=== PATIENT | female | born 1935 | race Caucasian/White ===

== ENCOUNTER 2022-01-08 11:15 | Outpatient (CLI) | payer MEDICARE | END 2022-01-08 11:16 | disposition home or self-care (01) | LOC: RAD-FRANK 11:15 | PROVIDERS: ATTEND Nurse Practitioner Family | DX: Z00.01 Encounter for general adult medical examination with abnormal findings (principal); M25.561 Pain in right knee; M17.11 Unilateral primary osteoarthritis, right knee ==

== ENCOUNTER 2022-05-20 13:51 | Inpatient (IN) | payer MEDICARE ==
[2022-05-20 14:31] LABS: #Eosinphils 0.1 thou/uL (0.0-0.7); #Monocytes 0.4 thou/uL (0.11-0.59); #Neutrophils 5.9 thou/uL (1.40-6.50); %Basophils 0.4 % (0.0-1.0); %Eosinophils 0.8 % (0.0-10.0); %Monocytes 4.6 % (0.0-10.0); %Neutrophils 70.2 % (42.0-75.0); Hemoglobin 13.3 g/dL (12.0-16.0); Mean Corpuscular HGB CONC 35.2 g/dL (32.0-36.0); Mean Corpuscular Hemoglobin 32.6 pg (27.0-31.0); Mean Corpuscular Volume 92.4 fl (78.0-98.0); Mean Platelet Volume 8.5 fL (7.4-10.4); Platelet Count 154 10x3/uL (130-400); RBC Distribution Width 11.5 % (11.5-14.5); Red Blood Cell (RBC) Count 4.09 mill/uL (4.20-5.40); White Blood Cell (WBC) Count 8.4 10x3/uL (4.8-10.8)
[2022-05-20 14:58] LABS: ALT (SGPT) 13 U/L (8-55); AST (SGOT) 22 U/L (5-34); Albumin 3.8 g/dL (3.4-4.8); Alkaline Phosphatase 53 U/L (40-110); Anion Gap 12 mmol/L (10-20); BUN (Urea Nitrogen) 11 mg/dL (9.8-20.1); Bilirubin, Total 0.5 mg/dL (0.2-1.2); CK (CPK) 135 U/L (29-168); Calc. Creatinine Clearance 0 mL/min (70-130); Calcium 8.7 mg/dL (7.8-10.44); Carbon Dioxide 23 mmol/L (23-31); Chloride 107 mmol/L (98-107); Estimated GFR 75; Globulin 2.6 g/dL (2.4-3.5); Glucose 192 mg/dL (83-110); Potassium 3.7 mmol/L (3.5-5.1); Protein, Total 6.4 g/dL (5.8-8.1); Sodium 138 mmol/L (136-145)
[2022-05-20 15:11] LABS: CKMB 4.3 ng/mL (0-6.6)
[2022-05-20 15:29] LABS: Bacteria/HPF 4+ HPF (None Seen); Bilirubin Negative (Negative); Blood, Urine Negative (Negative); Clarity Turbid (Clear); Glucose, Urine (Dipstick) 300 mg/dL (Negative); Ketone, Urine Trace mg/dL (Negative); Leukocyte 500 Leu/uL (Negative); Nitrite 1+ (Negative); Protein, Urine (Dipstick) Negative (Neg-Trace); Squamous Epithelial None Seen HPF (0-3); Urobilinogen Normal mg/dL (Less than 2); pH, Urine 6.5 (5.0-9.0)
[2022-05-20 15:31] LABS: RBC/HPF 0-3 HPF (0-3)
[2022-05-20] MEDS ORDERED: cefTRIAXone\\ROCEPHIN 2 GM VIAL ONE (15:44)
[2022-05-20] MEDS ORDERED: Ondansetron PF 4 MG/2 ML Vial IVP PRN (18:47)
[2022-05-20] MEDS ORDERED: Ondansetron ODT 4 MG TAB PO PRN (18:47)
[2022-05-20] MEDS ORDERED: Acetaminophen 325 MG TAB PO PRN (18:47)
[2022-05-20] MEDS ORDERED: Dextrose 50% Abboject 50 ML SYRINGE SLOW IVP PRN (18:47)
[2022-05-20] MEDS ORDERED: Dextrose 5% in Water 1,000 ML IV PRN (18:47)
[2022-05-20] MEDS ORDERED: HumaLOG 300 UNITS/3 ML VIAL SC PRN (18:47)
[2022-05-20 20:04] VITALS: BMI 22.8
[2022-05-20 21:17] LABS: Hemoglobin A1c 8.2 % (4.0-6.0)
[2022-05-20 21:32] LABS: Troponin I 0.057 ng/mL (< 0.028)
[2022-05-20] MEDS: Sodium Chloride 0.9% 1,000 ML IV SCH (21:37)
[2022-05-21 00:26] LABS: Troponin I 0.051 ng/mL (< 0.028)
[2022-05-21 05:09] LABS: #Eosinphils 0.1 thou/uL (0.0-0.7); #Monocytes 0.3 thou/uL (0.11-0.59); #Neutrophils 4.4 thou/uL (1.40-6.50); %Basophils 0.5 % (0.0-1.0); %Eosinophils 1.6 % (0.0-10.0); %Lymphocytes 29.4 % (21.0-51.0); %Monocytes 4.8 % (0.0-10.0); %Neutrophils 63.8 % (42.0-75.0); Hemoglobin 11.9 g/dL (12.0-16.0); Mean Corpuscular HGB CONC 34.3 g/dL (32.0-36.0); Mean Corpuscular Hemoglobin 32.1 pg (27.0-31.0); Mean Corpuscular Volume 93.4 fl (78.0-98.0); Mean Platelet Volume 8.4 fL (7.4-10.4); Platelet Count 145 10x3/uL (130-400); RBC Distribution Width 11.4 % (11.5-14.5); White Blood Cell (WBC) Count 6.9 10x3/uL (4.8-10.8)
[2022-05-21 05:32] LABS: Anion Gap 11 mmol/L (10-20); BUN (Urea Nitrogen) 7 mg/dL (9.8-20.1); Calc. Creatinine Clearance 50 mL/min (70-130); Calcium 8.5 mg/dL (7.8-10.44); Carbon Dioxide 22 mmol/L (23-31); Chloride 107 mmol/L (98-107); Estimated GFR 80; Glucose 137 mg/dL (83-110); Potassium 3.4 mmol/L (3.5-5.1); Sodium 137 mmol/L (136-145)
[2022-05-21] MEDS: Sodium Chloride 0.9% 1,000 ML IV SCH (09:57)
[2022-05-21] MEDS: HumaLOG 300 UNITS/3 ML VIAL SC PRN (12:56)
[2022-05-21] MEDS: cefTRIAXone\\ROCEPHIN 1 GM in Sodium Chloride 0.9% 100 ML IVPB SCH (17:03)
[2022-05-22] MEDS: Sodium Chloride 0.9% 1,000 ML IV SCH (00:01)
[2022-05-22] MEDS ORDERED: hydrOXYzine 25 MG TAB PO SCH (00:15)
[2022-05-22] MEDS: Carvedilol 25 MG TAB PO SCH ×2 (09:15→21:39)
[2022-05-22] MEDS: Hydrochlorothiazide 25 MG TAB PO SCH (09:15)
[2022-05-22] MEDS: cefTRIAXone\\ROCEPHIN 1 GM in Sodium Chloride 0.9% 100 ML IVPB SCH (15:34)
[2022-05-22] MEDS: HumaLOG 300 UNITS/3 ML VIAL SC PRN (18:18)
[2022-05-23 04:34] LABS: #Basophils 0.1 thou/uL (0.0-0.2); #Eosinphils 0.2 thou/uL (0.0-0.7); #Lymphocytes 2.4 thou/uL (1.20-3.40); #Monocytes 0.4 thou/uL (0.11-0.59); #Neutrophils 3.6 thou/uL (1.40-6.50); %Basophils 0.9 % (0.0-1.0); %Eosinophils 2.4 % (0.0-10.0); %Lymphocytes 36.1 % (21.0-51.0); %Monocytes 5.9 % (0.0-10.0); %Neutrophils 54.7 % (42.0-75.0); Hemoglobin 12.6 g/dL (12.0-16.0); Mean Corpuscular HGB CONC 34.3 g/dL (32.0-36.0); Mean Corpuscular Hemoglobin 31.9 pg (27.0-31.0); Mean Corpuscular Volume 92.9 fl (78.0-98.0); Mean Platelet Volume 8.5 fL (7.4-10.4); Platelet Count 154 10x3/uL (130-400); RBC Distribution Width 11.4 % (11.5-14.5); Red Blood Cell (RBC) Count 3.96 mill/uL (4.20-5.40); White Blood Cell (WBC) Count 6.6 10x3/uL (4.8-10.8)
[2022-05-23 05:00] LABS: Anion Gap 11 mmol/L (10-20); BUN (Urea Nitrogen) 9 mg/dL (9.8-20.1); Calc. Creatinine Clearance 48 mL/min (70-130); Calcium 8.9 mg/dL (7.8-10.44); Carbon Dioxide 25 mmol/L (23-31); Chloride 106 mmol/L (98-107); Estimated GFR 77; Glucose 122 mg/dL (83-110); Potassium 2.9 mmol/L (3.5-5.1); Sodium 139 mmol/L (136-145)
[2022-05-23] MEDS: Hydrochlorothiazide 25 MG TAB PO SCH (10:10)
[2022-05-23] MEDS: Carvedilol 25 MG TAB PO SCH ×2 (10:10→20:48)
[2022-05-23] MEDS: cefTRIAXone\\ROCEPHIN 1 GM in Sodium Chloride 0.9% 100 ML IVPB SCH (15:15)
[2022-05-23] MEDS: Potassium Chloride 20 MEQ TAB PO SCH ×2 (15:15→18:06)
[2022-05-24 08:14] VITALS: TEMP 98.1
[2022-05-24 08:25] LABS: Anion Gap 10 mmol/L (10-20); BUN (Urea Nitrogen) 9 mg/dL (9.8-20.1); Calc. Creatinine Clearance 46 mL/min (70-130); Calcium 9.4 mg/dL (7.8-10.44); Carbon Dioxide 27 mmol/L (23-31); Chloride 104 mmol/L (98-107); Estimated GFR 73; Glucose 163 mg/dL (83-110); Magnesium 1.7 mg/dL (1.6-2.6); Potassium 3.5 mmol/L (3.5-5.1); Sodium 137 mmol/L (136-145)
[2022-05-24] MEDS: Carvedilol 25 MG TAB PO SCH (08:55)
[2022-05-24] MEDS ORDERED: Magnesium Oxide 400 MG TAB PO SCH (09:00)
[2022-05-24] MEDS ORDERED: Amlodipine 5 MG TAB PO SCH ×2 (09:00→09:15)
[2022-05-24] MEDS ORDERED: FLU VACC QS2022-23(65YR UP)/PF 240 MCG/0.7 ML SYRINGE IM ONE (09:00)
[2022-05-24] MEDS: Potassium Chloride 20 MEQ TAB PO SCH (09:03)
[2022-05-24] MEDS: HumaLOG 300 UNITS/3 ML VIAL SC PRN (11:47)
[2022-05-24 11:51] VITALS: BP 152/67
[2022-05-25] MEDS ORDERED: Amlodipine 5 MG TAB PO SCH (09:00)
== END 2022-05-24 14:53 | DRG 689 ==
LOC: ERS 13:51 → ERHOLD 16:57 → 2NO 18:50
PROVIDERS: ADMIT Family Medicine; ATTEND Family Medicine
DX: N39.0 Urinary tract infection, site not specified (principal); G93.41 Metabolic encephalopathy; Z20.822 Contact with and (suspected) exposure to COVID-19; I10 Essential (primary) hypertension; E11.9 Type 2 diabetes mellitus without complications; F03.90 Unspecified dementia, unspecified severity, without behavioral disturbance, psychotic disturbance, mood disturbance, and anxiety; R77.8 Other specified abnormalities of plasma proteins; E87.6 Hypokalemia; B96.20 Unspecified Escherichia coli [E. coli] as the cause of diseases classified elsewhere; Z88.0 Allergy status to penicillin; Z79.899 Other long term (current) drug therapy
CPT/HCPCS: 36415; 36416; 70450; 71045; 80048; 80053; 81003; 81015; 82550; 82553; 83036; 83605; 83735; 84484; 85025; 87040; 87077; 87086; 87186; 93005; 96365; J0696; J1650; J1815; J3490; J7050; U0003; U0005